=== PATIENT | male | born 2000 | race Caucasian/White ===

== ENCOUNTER 2024-05-19 12:51 | Emergency (ER) | payer BC, SELFPAY ==
[2024-05-19 12:56] VITALS: BP 136/74; PULSE 92; TEMP 36.9; O2SAT 96; BMI 27.4
--- NOTE | 2024-05-19 13:21 | ED_ITS ---
HPI - URI/Sore Throat General Chief Complaint: Upper Respiratory Infection Stated Complaint: EAR PROBLEMS Time Seen by Provider: 05/19/24 13:14 Source: patient Limitations: no limitations History of Present Illness HPI Narrative: 24-year-old male with a history of recurrent ear infections as a child presents to the ER with concerns of bilateral ear discomfort decreased hearing. 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 States he has had a slightly productive cough and sinus congestion for the past 3 to 4 days, no measurable fever. Noting some discomfort in the ears bilaterally yesterday and today. He denies any nausea vomiting or headache, denies any visual disturbance or abdominal pain. He is without shortness of breath, states he does not want to have to call off work if symptoms worsen. MD elicited complaint: Reports cough and nasal congestion Relieving factors: Reports OTC cold medicine Related Data Previous Rx's ?Medication ?Instructions ?Recorded amoxicillin 875 mg tablet 875 mg PO BID 10 days #20 tabs 05/19/24 Allergies Allergy/AdvReac Type Severity Reaction Status Date / Time diphenhydramine Allergy Intermediate Hives Verified 05/19/24 12:56 [From Benadryl] levalbuterol [From Xopenex] Allergy Intermediate Hives Verified 05/19/24 12:59 Review of Systems ROS Constitutional Denies: fever or chills Ears, nose, mouth, and throat Reports: ear pain, change in hearing, nasal congestion and other; Denies: throat pain, neck pain, throat swelling, ear discharge, tinnitus or nasal discharge Cardiovascular Denies: chest pain or palpitations Respiratory Reports: cough; Denies: shortness of breath Gastrointestinal Denies: abdominal pain or nausea Musculoskeletal Denies: back pain or neck pain Integumentary/Breast Denies: rash Neurological Denies: headache Psychiatric Denies: anxiety PFSH PFSH Social History Little interest or pleasure in doing things: not at all Feeling down, depressed, or hopeless: not at all Exam Narrative Exam Narrative: Nurses notes and vital signs reviewed and patient is not hypoxic. General: The patient appears well and in no apparent distress. Patient is resting comfortably on cart. Skin: Warm, dry, no pallor noted. No evidence of rash Head: Normocephalic, atraumatic Neck: Supple, trachea mid-line, no tenderness, no lymphadenopathy Eye: Pupils are equal, round and reactive to light, EOMI Ears, Nose, Mouth, and Throat: No auricle or tragal tenderness noted, right TM and canal are unremarkable, left TM is injected, slight middle ear effusion. No dental pain. No mastoid tenderness. Oral mucosa is moist, no posterior oropharynx erythema or hypertrophy, uvula is mid-line Cardiovascular: Regular Rate and Rhythm Respiratory: Patient is in no distress, no accessory muscle use, lungs are clear to auscultation, no wheezing, rales or rhonchi. Chest Wall: no tenderness Back: non-tender, no CVA tenderness Musculoskeletal: normal ROM, no tenderness, no swelling GI: Normal bowel sounds, no tenderness to palpation, no masses appreciated. No rebound, guarding, or rigidity noted. Neurological: A&O x4 Psychiatric: Cooperative Constitutional Vital Signs, click to edit/add: Last Vital Signs Temp 98.4 F 05/19/24 12:56 Pulse 92 H 05/19/24 12:56 Resp 16 05/19/24 12:56 BP 136/74 05/19/24 12:56 Pulse Ox 96 05/19/24 12:56 O2 Del Method Room Air 05/19/24 12:56 Course Vital Signs Vital signs: Vital Signs Temperature 98.4 F 05/19/24 12:56 Pulse Rate 92 H 05/19/24 12:56 Respiratory Rate 16 05/19/24 12:56 Blood Pressure 136/74 05/19/24 12:56 Pulse Oximetry 96 05/19/24 12:56 Oxygen Delivery Method Room Air 05/19/24 12:56 Temperature 98.4 F 05/19/24 12:56 Pulse Rate 92 H 05/19/24 12:56 Respiratory Rate 16 05/19/24 12:56 Blood Pressure 136/74 05/19/24 12:56 Pulse Oximetry 96 05/19/24 12:56 Oxygen Delivery Method Room Air 05/19/24 12:56 MDM - URI/Sore Throat MDM Narrative Medical decision making narrative: Likely viral URI preceding ear pain, clinical exam concerning for early otitis media on the left. We discussed conjunctival injection, discomfort, decreased hearing with likely middle ear effusions. Recommend symptomatic treatment with Tylenol, Motrin, Zyrtec and Mucinex. Patient will be given a prescription of amoxicillin. He does not have a PCP if his symptoms do not continue to improve he will start the antibiotic and finish to completion. He is given local providers for follow-up. Patient verbalized that he may return to ER if symptoms worsen. The patient is to followup with primary care physician in next 2-3 days or to return to the emergency department should any of the signs or symptoms worsen or new symptoms develop. Patient had questions answered. The patient agrees with the following Diagnosis and Treatment plan and the patient will be discharged home. Discharge Plan Discharge Chief Complaint: Upper Respiratory Infection Clinical Impression: Upper respiratory infection, Acute left otitis media Patient Disposition: Home, Self-Care Time of Disposition Decision: 13:21 Condition: Good Mode of Transportation: Private Vehicle Prescriptions / Home Meds: New amoxicillin 875 mg tablet 875 mg PO BID 10 Days Qty: 20 0RF Print Language: Lithuanian Instructions: Ear Infection (ED), Upper Respiratory Infection (ED) Additional Instructions: recommend Muccinex and Zyrtec for symptom relief - Start antibiotic if not improving, return to ER if symptoms worsen in interim. Referrals: HIEU SEGURA [Nurse Practitioner] - As needed
== END 2024-05-19 13:32 | disposition home or self-care (01) ==
PROVIDERS: Emergency Provider Emergency Medicine
DX: J06.9 Acute upper respiratory infection, unspecified (principal); H66.92 Otitis media, unspecified, left ear
CPT/HCPCS: 99281

== ENCOUNTER 2024-10-23 12:43 | Emergency (ER) | payer BC, SELFPAY ==
[2024-10-23 12:47] VITALS: BP 127/83; PULSE 100; TEMP 36.6; O2SAT 98; BMI 26.9
--- NOTE | 2024-10-23 12:56 | ECG_ITS ---
[facility] Test Date: 2024-10-23 Pat Name: MIHAELA BERGERON Department: Room: - Gender: Male Welcome Hostess: : 2000 Requested By: Order Number: [id number] Reading MD: JAMAR IBRAHIM Measurements Intervals [place] Rate: 84 P: 90 [place]: 134 QRS: 74 QRSD: 96 T: 59 QT: 364 QTc: 406 Interpretive Statements 1100 Sinus rhythm 1102 Sinus arrhythmia 9110 normal ECG No previous ECG available for comparison Electronically Signed On 10-24-2024 6:51:51 EST by JAMAR IBRAHIM
--- NOTE | 2024-10-23 12:56 | XR_ITS ---
The [address] [address] Patient Name: MIHAELA BERGERON MRN: [id number] date: 2000 Sex: M Assigned Patient Location: ER Current Patient Location: ER Accession/Order Number: [id number] Exam Date: 10/23/2024 13:05 Report Date: 10/23/2024 14:06 At the request of: MOMO HORVATH Procedure: XR chest 2V EXAM: XR chest 2V HISTORY: chest pain COMPARISON: None. TECHNIQUE: Upright PA and lateral chest x-ray FINDINGS: The heart is not enlarged and the vasculature is not distended. No acute infiltrate, effusion or pneumothorax is identified. The osseous structures are grossly intact. XR/XR chest 2V IMPRESSION: No acute infiltrate or evidence of cardiac decompensation. Electronically authenticated by: CAPO ZARCO Date: 10/23/2024 14:06
[2024-10-23 14:39] LABS: Basophils Absolute Auto 0.1 10^3/uL (0.0-0.1); Basophils Percent Auto 0.8 % (0.2-2.0); Eosinophils Absolute Auto 0.1 10^3/uL (0.0-0.7); Hematocrit 42.4 % (42.0-54.0); Hemoglobin 14.6 g/dL (14.0-18.0); Immature Granulocytes Abs Auto 0.01 10^3/uL (0.00-0.03); Immature Granulocytes Pct Auto 0.1 % (0.0-0.5); Lymphocytes Absolute Auto 1.6 10^3/uL (1.2-3.8); Lymphocytes Percent Auto 23.1 % (20.5-60.0); Mean Corpuscular HGB Conc 34.4 g/dL (29.9-35.2); Mean Corpuscular Hemoglobin 31.7 pg (25.9-34.0); Mean Corpuscular Volume 92.2 fL (80.0-94.0); Mean Platelet Volume 9.6 fL (9.5-13.5); Monocytes Absolute Auto 0.6 10^3/uL (0.3-0.8); Monocytes Percent Auto 8.9 % (1.7-12.0); Neutrophils Absolute Auto 4.7 10^3/uL (1.4-6.5); Neutrophils Percent Auto 66.1 % (43.0-75.0); Platelet Count 273 10^3/uL (150-450); Red Cell Distribution Width 11.8 % (11.0-15.0); White Blood Count 7.1 10^3/uL (4.0-11.0)
[2024-10-23 14:47] LABS: Bilirubin Urine NEGATIVE (NEGATIVE); Blood Urine NEGATIVE (NEGATIVE); Clarity Urine CLEAR (CLEAR); Color Urine LT. YELLOW (YELLOW); Glucose Urine UA NEGATIVE (NEGATIVE); Ketones Urine 40 mg/dL (NEGATIVE); Leukocyte Esterase Urine NEGATIVE (NEGATIVE); Nitrite Urine NEGATIVE (NEGATIVE); Protein Urine NEGATIVE (NEG/TRACE); Urobilinogen Urine 0.2 EU/dL (0.2-1.0)
[2024-10-23 14:57] LABS: Alanine Aminotransferase 31 U/L (16-63); Albumin Globulin Ratio 1.5; Albumin Level 4.7 g/dL (3.4-5.0); Alkaline Phosphatase 62 U/L (46-116); Anion Gap 12.8; Aspartate Amino Transferase 23 U/L (15-37); Bilirubin Total 0.6 mg/dL (0.2-1.0); Calcium 9.2 mg/dL (8.5-10.1); Chloride 104 mmol/L (98-107); Estimated GFR (African America >60 (>=60 mL/min/1.73m^2); Estimated GFR (Non-African Ame >60 (>=60 mL/min/1.73m^2); Globulin 3.1 g/dL; Glucose 95 mg/dL (74-106); Potassium 3.8 mmol/L (3.5-5.1); Sodium 141 mmol/L (136-145); Total Protein 7.8 g/dL (6.4-8.2); Troponin I High Sensitivity 7.3 pg/mL (4.0-76.1)
[2024-10-23 14:59] LABS: WBC Urine 0-2 #/HPF (NONE SEEN)
[2024-10-23 15:00] LABS: Amorphous Sediment Urine MODERATE; Bacteria Urine TRACE #/HPF (NONE SEEN); Cast Seen? NONE SEEN #/LPF (NONE SEEN); Crystals Seen? Seen #/HPF (None Seen); Mucus Urine MODERATE (NONE SEEN); RBC Urine NONE SEEN #/HPF (0-2); Squamous Epithelial Cell Urine NONE SEEN #/LPF (NONE/RARE); Urine Culture Indicated NO
--- NOTE | 2024-10-23 15:18 | ED_ITS ---
HPI - Chest Pain General Chief Complaint: Chest Pain Stated Complaint: PRESSURE IN CHEST BACK PAIN Time Seen by Provider: 10/23/24 14:10 Source: patient Mode of arrival: walk-in Limitations: no limitations History of Present Illness HPI narrative: Patient is a 24-year-old male who presents to the emergency department for a 1 month history of pressure in the epigastric abdomen and inferior sternum. He states for several months he has been feeling pain in the thoracic spine and scapulas. He has not had any extremity swelling, hemoptysis. He has no other major medical history and takes no medications. He has had no fevers, cough, congestion, vomiting, diarrhea. He has had difficulty getting in with a primary care provider in the area and became concerned that the symptoms were persisting so he presents to the emergency department to make sure nothing is wrong . Risk Factors Coronary artery disease risk factors: none Related Data Previous Rx's ?Medication ?Instructions ?Recorded amoxicillin 875 mg tablet 875 mg PO BID 10 days #20 tabs 05/19/24 ketorolac 10 mg tablet 10 mg PO TID PRN pain #10 tabs 10/23/24 methocarbamol 750 mg tablet 750 mg PO TID PRN pain #20 tabs 10/23/24 Allergies Allergy/AdvReac Type Severity Reaction Status Date / Time diphenhydramine (From Allergy Intermediate Hives Verified 05/19/24 12:56 Benadryl) levalbuterol (From Xopenex) Allergy Intermediate Hives Verified 05/19/24 12:59 Review of Systems ROS Constitutional Denies: fever or chills Ears, nose, mouth, and throat Denies: throat pain or nasal congestion Cardiovascular Reports: chest pain Respiratory Denies: shortness of breath or cough Gastrointestinal Denies: nausea, vomiting or diarrhea Musculoskeletal Reports: back pain; Denies: neck pain Integumentary/Breast Denies: rash Neurological Denies: numbness in extremities or weakness in extremities Hematologic/Lymphatic Denies: easy bruising or easy bleeding PFSH PFSH Social History Little interest or pleasure in doing things: not at all Feeling down, depressed, or hopeless: not at all Exam Narrative Exam Narrative: Gen.: Awake, alert, in no distress Head: Normocephalic, atraumatic ENT: Moist mucous membranes Respiratory: No respiratory distress, lungs clear bilaterally Cardio: Regular rate and rhythm Gastrointestinal: Abdomen is soft, nondistended and nontender to palpation Extremities: Moves extremities equally Psych: Normal mood and affect Neuro: No focal neuro deficit Skin: Warm, dry, intact Constitutional Vital Signs, click to edit/add: Last Vital Signs Temp 97.8 F 10/23/24 12:47 Pulse 100 H 10/23/24 12:47 Resp 18 10/23/24 12:47 BP 127/83 10/23/24 12:47 Pulse Ox 98 10/23/24 12:47 O2 Del Method Room Air 10/23/24 12:47 Course Vital Signs Vital signs: Vital Signs Temperature 97.8 F 10/23/24 12:47 Pulse Rate 100 H 10/23/24 12:47 Respiratory Rate 18 10/23/24 12:47 Blood Pressure 127/83 10/23/24 12:47 Pulse Oximetry 98 10/23/24 12:47 Oxygen Delivery Method Room Air 10/23/24 12:47 Temperature 97.8 F 10/23/24 12:47 Pulse Rate 100 H 10/23/24 12:47 Respiratory Rate 18 10/23/24 12:47 Blood Pressure 127/83 10/23/24 12:47 Pulse Oximetry 98 10/23/24 12:47 Oxygen Delivery Method Room Air 10/23/24 12:47 MDM - Chest Pain MDM Narrative Medical decision making narrative: Patient had a heart rate of 100 exactly on arrival to the ER but had no persistent tachycardia and EKG shows normal sinus rhythm with no tachycardia at a rate of 84. He has no tachycardia, hypoxia or other PE risk factors and PERC score is 0. Laboratory studies reviewed and noted within normal limits. Exam is consistent with musculoskeletal back pain and likely costochondritis. He will be started on an anti-inflammatory and muscle relaxant. Follow-up with PCP and return to the emergency department if symptoms change or worsen. Patient w as given a primary care referral with prescriptions for home. Education and reassurance given at bedside. SUPERVISED APC VISIT, PHYSICIAN ATTESTATION: Based on the medical record the care appears appropriate. ? Medical Records Data Attestation: I reviewed the patient's medical records. Lab Data Attestation: I reviewed the patient's lab results. Labs: Lab Results 02/17/25 02/17/25 Range/Units 14:20 14:29 WBC 7.1 (4.0-11.0) 10^3/uL RBC 4.60 L (4.70-6.10) 10^6/uL Hgb 14.6 (14.0-18.0) g/dL Hct 42.4 (42.0-54.0) % MCV 92.2 (80.0-94.0) fL MCH 31.7 (25.9-34.0) pg MCHC 34.4 (29.9-35.2) g/dL RDW 11.8 (11.0-15.0) % Plt Count 273 (150-450) 10^3/uL MPV 9.6 (9.5-13.5) fL Neut % (Auto) 66.1 (43.0-75.0) % Lymph % (Auto) 23.1 (20.5-60.0) % [place] % (Auto) 8.9 (1.7-12.0) % Eos % (Auto) 1.0 (0.9-7.0) % Baso % (Auto) 0.8 (0.2-2.0) % Neut # (Auto) 4.7 (1.4-6.5) 10^3/uL Lymph # (Auto) 1.6 (1.2-3.8) 10^3/uL [place] # (Auto) 0.6 (0.3-0.8) 10^3/uL Eos # (Auto) 0.1 (0.0-0.7) 10^3/uL Baso # (Auto) 0.1 (0.0-0.1) 10^3/uL Abs Immat Gran (auto) 0.01 (0.00-0.03) 10^3/uL Imm/Tot Granulo (auto) 0.1 (0.0-0.5) % Sodium 141 (136-145) mmol/L Potassium 3.8 (3.5-5.1) mmol/L Chloride 104 (98-107) mmol/L Carbon Dioxide 28.0 (21.0-32.0) mmol/L Anion Gap 12.8 BUN 19.0 H (7.0-18.0) mg/dL Creatinine 0.95 (0.70-1.30) mg/dL Est GFR ( Amer) >60 (>=60 mL/min/1.73m^2) Est GFR (Non-Af Amer) >60 (>=60 mL/min/1.73m^2) BUN/Creatinine Ratio 20.0 Glucose 95 (74-106) mg/dL Lactate 1.0 (0.4-2.0) mmol/L Calcium 9.2 (8.5-10.1) mg/dL Total Bilirubin 0.6 (0.2-1.0) mg/dL AST 23 (15-37) U/L ALT 31 (16-63) U/L Alkaline Phosphatase 62 (46-116) U/L Troponin I High Sens 7.3 (4.0-76.1) pg/mL Total Protein 7.8 (6.4-8.2) g/dL Albumin 4.7 (3.4-5.0) g/dL Globulin 3.1 g/dL Albumin/Globulin Ratio 1.5 Lipase 21.0 (16.0-77.0) U/L Urine Color Lt. yellow (YELLOW) Urine Clarity Clear (CLEAR) Urine pH 7.0 (5.0-9.0) Ur Specific [place] 1.020 (1.005-1.025) Urine Protein Negative (NEG/TRACE) mg/dL Urine Glucose (UA) Negative (NEGATIVE) mg/dL Urine Ketones 40 A (NEGATIVE) mg/dL Urine Occult Blood Negative (NEGATIVE) Urine Nitrite Negative (NEGATIVE) Urine Bilirubin Negative (NEGATIVE) Urine Urobilinogen 0.2 (0.2-1.0) EU/dL Ur Leukocyte Esterase Negative (NEGATIVE) Urine RBC None seen (0-2) #/HPF Urine WBC 0-2 A (NONE SEEN) #/HPF Ur Squamous Epith Cells None seen (NONE/RARE) #/LPF Urine Crystals Seen A (None Seen) #/HPF Amorphous Sediment Moderate Urine Bacteria Trace A (NONE SEEN) #/HPF Urine Casts None seen (NONE SEEN) #/LPF Urine Mucus Moderate A (NONE SEEN) Ur Culture Indicated? No Imaging Data Chest x-ray: Attestation: I have reviewed the pertinent imaging results. Radiologist's impression: ITS Impressions Chest X-Ray 10/23/24 12:56 IMPRESSION: No acute infiltrate or evidence of cardiac decompensation. Electronically authenticated by: CAPO ZARCO Date: 10/23/2024 14:06 ECG Data Attestation: I personally reviewed and interpreted this ECG as follows: (Normal sinus rhythm at a rate of 84, sinus arrhythmia noted with no acute ST elevation or ectopy. EKG reviewed by attending physician) Heart Score History: Slightly/Non-Suspicious ECG: Normal Age: <45 years Risk Factors: 1 or 2 Risk Factors Troponin: <Normal Limit Total Heart Score Recommendations & Risks:: 1 Discharge Plan Discharge Chief Complaint: Chest Pain Clinical Impression: Atypical chest pain, Back pain Patient Disposition: Home, Self-Care Time of Disposition Decision: 15:25 Condition: Good Prescriptions / Home Meds: New ketorolac 10 mg tablet 10 mg PO TID PRN (Reason: pain) Qty: 10 0RF methocarbamol 750 mg tablet 750 mg PO TID PRN (Reason: pain) Qty: 20 0RF No Action amoxicillin 875 mg tablet 875 mg PO BID 10 Days Qty: 20 0RF Print Language: Albanian Instructions: Back Pain (ED), Noncardiac Chest Pain (ED) Referrals: Physician,Non-Staff, MD [Primary Care Provider] - 1 week
== END 2024-10-23 15:35 | disposition home or self-care (01) ==
PROVIDERS: Physician Assistant; Emergency Provider Emergency Medicine
DX: R07.89 Other chest pain (principal); M54.6 Pain in thoracic spine
CPT/HCPCS: 36415; 71046; 80053; 81001; 83605; 83690; 84484; 85025; 93005; 99285